=== PATIENT | female | born 1935 | race Two or more races ===

== ENCOUNTER 2018-03-10 12:30 | Outpatient (RCR) | payer MEDICARE, OTHER ==
[~2018-03-10 12:30] MED LIST: CARVEDILOL3.125 MG ORAL; CELEBREX100 MG ORAL; DIOVAN40 MG ORAL; DYAZIDE1 CAP ORAL; OMEPRAZOLE5 GM MC; OYSCO 500+D TA1 EAC1 PO; XARELTO10 MG ORAL
== END 2018-03-18 | disposition home or self-care (01) ==
LOC: PTY 12:30
DX: M17.9 Osteoarthritis of knee, unspecified (principal)
CPT/HCPCS: 97110; 97161; G8978; G8979

== ENCOUNTER 2018-03-20 12:30 | Outpatient (RCR) | payer MEDICARE, OTHER | END 2018-04-17 | disposition home or self-care (01) | LOC: PTY 12:30 | DX: M17.0 Bilateral primary osteoarthritis of knee (principal) | CPT/HCPCS: 97110; 97140; G8979; G8980 ==